=== PATIENT | female | born 1975 | race Caucasian/White ===

== ENCOUNTER 2016-05-29 15:36 | Emergency (ER) ==
[2016-05-29 15:39] VITALS: BP 123/82; TEMP 98.2; BMI 25.4
--- NOTE | 2016-05-29 16:11 | ED.PDOC ---
General ED Provider: Dr. TITO NOBLE Chief Complaint: Headache Stated Complaint: headache Time Seen by Physician: 15:45 (flu like symptoms) Mode of Arrival: Walk-In Information Source: Patient Exam Limitations: No limitations Primary Care Provider: XAVI CHAPMAN Nursing and Triage Documentation Reviewed and Agree: Yes EENT Complaint Exam - Throat Complaint/Exam Onset/Duration: 1 day with headache, chills Symptoms Are: Still present Timimg: Intermittent Initial Severity: Mild Current Severity: Mild Alleviating: Reports: None Associated Signs and Symptoms: Reports: Cough, Nasal congestion. Denies: Fever , Dysphagia, Drooling, Foreign body sensation, Chills, Wheezing, Hoarseness, Sinus discomfort, Difficulty breathing, Lethargy, Irritability, Decreased activity, Vomiting, Diarrhea, Decreased hearing, Ear drainage Related History: Reports: Similar Episode Uvula Midline: Yes Yamileth-tonsillar Fluctuence: No Scarlatinaform Rash Present: No Stridor Present: No Sinus Tenderness Present: No Tonsillar Hypertrophy Present: No Tonsillar Exudate Present: No Yamileth-tonsillar Swelling Present: No Adenopathy Present: No Splenomegaly Present: No Differential Diagnoses: Pharyngitis Review of Systems - Review Of Systems Constitutional: Reports: Malaise, Weakness Eyes: Reports: No symptoms Ears, Nose, Mouth, Throat: Reports: Throat pain Respiratory: Reports: No symptoms Cardiac: Reports: No symptoms GI: Reports: No symptoms : Reports: No symptoms Musculoskeletal: Reports: No symptoms Skin: Reports: No symptoms Neurological: Reports: No symptoms Endocrine: Reports: No symptoms Hematologic/Lymphatic: Reports: No symptoms All Other Systems: Reviewed and Negative Past Medical History - Past Medical History Previously Healthy: Yes Endocrine: Reports: None, DM 2 Cardiovascular: Reports: None Respiratory: Reports: None Hematological: Reports: None Gastrointestinal: Reports: None Genitourinary: Reports: None Neuro/Psych: Reports: None Musculoskeletal: Reports: None Cancer: Reports: None Last Menstrual Period: NONE - Surgical History General Surgical History: Reports: Tubal ligation, Appendectomy, Other (T&A) - Family History Family History: Reports: Unknown - Social History Smoking Status: Current every day smoker, Heavy tobacco smoker Hx Substance Use: No Alcohol Screening: Occasionally Physical Exam - Physical Exam Appearance: Ill-appearing Ill-appearing: Mild Pain Distress: Moderate Eyes: ETIENNE, EOMI, Conjunctiva clear ENT: Ears normal, Nose normal, Oropharynx normal Respiratory: Airway patent, Breath sounds clear, Breath sounds equal, Respirations nonlabored Cardiovascular: RRR, Pulses normal, No rub, No murmur GI/: Soft, Nontender, No masses, Bowel sounds normal, No Organomegaly Musculoskeletal: Normal strength, ROM intact, No edema, No calf tenderness Skin: Warm, Dry, Normal color Neurological: Sensation intact, Motor intact, Reflexes intact, Cranial nerves intact, Alert, Oriented Psychiatric: Affect appropriate, Mood appropriate Critical Care Note - Critical Care Note Total Time (mins): 0 Course - Course Vital Signs: Temp Pulse Resp BP Pulse Ox 05/29/16 15:36 98.2 F 81 20 123/82 94 L Departure - Departure Time of Disposition: 16:11 Disposition: HOME SELF-CARE Discharge Problem: Headache, Viral syndrome Instructions: Viral Syndrome (ED) Condition: Good Pt referred to PMD for follow-up: No Additional Instructions: Please call your Family Physician as soon as possible to schedule a follow-up appointment. Prescriptions: Hydrocodone/Acetaminophen [Loris 5-325 Tablet] 1 each PO Q6HR PRN #6 tablet PRN Reason: PAIN Azithromycin [Zithromax] 250 mg PO DIRECTED #6 tablet Prednisone 40 mg PO DAILYWM #7 tablet Allergies/Adverse Reactions: Allergies ibuprofen Adverse Reaction (Verified 05/29/16 15:40) NAUSEA IRRITATES STOMACH Home Medications: Ambulatory Orders Hydrocodone/Acetaminophen [Loris 7.5-325 Tablet] 7.5 - 325 mg PO TID 12/07/15 Azithromycin [Zithromax] 250 mg PO DIRECTED #6 tablet 05/29/16 Hydrocodone/Acetaminophen [Loris 5-325 Tablet] 1 each PO Q6HR PRN #6 tablet Prednisone 40 mg PO DAILYWM #7 tablet 05/29/16
== END 2016-05-29 16:19 | disposition home or self-care (01) ==
LOC: ED 15:36
DX: B34.9 Viral infection, unspecified (principal); R51 Headache; F17.210 Nicotine dependence, cigarettes, uncomplicated; Z79.899 Other long term (current) drug therapy
CPT/HCPCS: 99282

== ENCOUNTER 2016-06-30 15:01 | Emergency (ER) ==
[2016-06-30 15:04] VITALS: BP 102/69; TEMP 98.3; BMI 25.7
[2016-06-30 15:25] LABS: BASOPHILS % (AUTO) 0.3 % (0.0-3.0); EOSINOPHILS # (AUTO) 0.1 K/ul (0.0-0.7); EOSINOPHILS % (AUTO) 0.9 % (0.0-7.0); HEMATOCRIT 37.5 % (37.0-47.0); IMMATURE GRANULOCYTE % (AUTO) 0.3 % (0.0-5.0); LYMPHOCYTES # (AUTO) 3.1 K/uL (0.60-3.4); LYMPHOCYTES % (AUTO) 23.6 (10.0-50.0); MEAN CORPUSCULAR HEMOGLOBIN 31.7 pg (27.0-31.0); MEAN CORPUSCULAR HGB CONC 34.7 (31.8-35.4); MEAN CORPUSCULAR VOLUME 91.5 fl (81.0-99.0); MONOCYTES # (AUTO) 0.8 K/uL (0.4-2.0); MONOCYTES % (AUTO) 6.2 (0-10); NEUTROPHILS # (AUTO) 8.9 K/ul (2.0-6.9); NEUTROPHILS % (AUTO) 68.7; PLATELET COUNT 334 10^3/uL (140-440); WHITE BLOOD COUNT 13.01 K/ul (4.6-10.2)
[2016-06-30 16:01] LABS: URINE PREGNANCY INTERNAL QC INTERNAL QC VALID
[2016-06-30 16:11] LABS: FLU INTERNAL QC INTERNAL QC VALID; RAPID FLU A NEGATIVE (NEGATIVE); RAPID FLU B NEGATIVE (NEGATIVE)
[2016-06-30 16:19] LABS: POTASSIUM 3.1 mmol/L (3.5-5.10)
[2016-06-30 16:20] LABS: ALBUMIN 3.9 g/dL (3.4-5.0); ALBUMIN/GLOBULIN RATIO 1.44; ANION GAP 10.1; BILIRUBIN,TOTAL 0.7 mg/dL (0.00-1.20); CALCIUM 8.9 mg/dL (8.2-10.2); CREATININE 0.6 mg/dL (0.60-1.30); TOTAL PROTEIN 6.6 g/dL (6.4-8.2)
--- NOTE | 2016-06-30 16:31 | DI ---
EXAM: Chest two views HISTORY: Cough FINDINGS: PA and lateral views of the chest were obtained and demonstrates the lungs to be well exp anded and appear clear. There is no evidence of focal infiltrate, consolidate nor concerning pulmon tom nodule or mass. Heart, pleura, esequiel, mediastinum, and pulmonary vascular lung markings appeared normal. The osseous structures are without significant abnormality. IMPRESSION: No active cardiac or pulmonary disease. No significant changes compared to the prior s tudy dated 07/22/2014.
[2016-06-30] MEDS ORDERED: LIDOCAINE 1 % AMP 5 ML (SUTURES) IM STA (16:44)
[2016-06-30] MEDS ORDERED: ROCEPHIN IM STA (16:44)
[2016-06-30] MEDS ORDERED: ZITHROMAX PO STA (16:45)
--- NOTE | 2016-06-30 16:49 | ED.PDOC ---
General ED Provider: Dr. TITO NOBLE Chief Complaint: Respiratory Complaint Stated Complaint: cough, wheez, weak Time Seen by Physician: 15:00 Mode of Arrival: Walk-In Information Source: Patient Exam Limitations: No limitations [facility] and T[facility] Documentation Reviewed and Agree: Yes Respiratory Complaint Exam - Respiratory Complaint/Exam Onset/Duration: 2 days Symptoms Are: Still present Timing: Intermittent Initial Severity: Moderate Current Severity: Moderate Location: Throat, Chest Character: Reports: Non-productive cough Aggravating: Reports: None Associated Signs and Symptoms: Reports: Wheezing (smokes2 pack/day) Related History: Reports: Similar episode History of Healthcare-Acquired Pneumonia: No Related Surgical History: Reports: None Pulmonary Embolism Risk Factors: None Cardiac Risk Factors: Reports: None Pseudomonas Risk Factors: Reports: None Tuberculosis Risk Factors: Reports: Smoking Status Asthmaticus Risk Factors: Reports: None Home Oxygen Use: No Recent Stress Test: No Recent Echo/LV Function: No Current Antibiotic Use: No Current Asthma Medication Use: No Respiratory Distress: None Inadequate Respiratory Effort: No Dysphagia Present: No Stridor Present: No JVD Present: No Retractions: Not Present Diminished Breath Sounds: No Sinus Tenderness: None Grunting Respirations: No Kussmaul Respirations: No Differential Diagnoses: Pneumonia, Bronchitis Review of Systems - Review Of Systems Constitutional: Reports: Malaise, Weakness Eyes: Reports: No symptoms Ears, Nose, Mouth, Throat: Reports: No symptoms Respiratory: Reports: Cough Cardiac: Reports: No symptoms GI: Reports: No symptoms : Reports: No symptoms Musculoskeletal: Reports: No symptoms Skin: Reports: No symptoms Neurological: Reports: No symptoms Endocrine: Reports: No symptoms Hematologic/Lymphatic: Reports: No symptoms All Other Systems: Reviewed and Negative Past Medical History - Past Medical History Previously Healthy: Yes Endocrine: Reports: None, DM 2 Cardiovascular: Reports: None Respiratory: Reports: None Hematological: Reports: None Gastrointestinal: Reports: None Genitourinary: Reports: None Neuro/Psych: Reports: None Musculoskeletal: Reports: None Cancer: Reports: None Last Menstrual Period: n/a - Surgical History General Surgical History: Reports: Tubal ligation, Appendectomy, Other (T&A) - Family History Family History: Reports: Unknown - Social History Smoking Status: Current every day smoker, Heavy tobacco smoker Hx Substance Use: No Alcohol Screening: Occasionally Physical Exam - Physical Exam Appearance: Well-appearing, No pain distress, Well-nourished Eyes: ETIENNE, EOMI, Conjunctiva clear ENT: Ears normal, Nose normal, Oropharynx normal Respiratory: Airway patent, Breath sounds clear, Breath sounds equal, Respirations nonlabored Cardiovascular: RRR, Pulses normal, No rub, No murmur GI/: Soft, Nontender, No masses, Bowel sounds normal, No Organomegaly Musculoskeletal: Normal strength, ROM intact, No edema, No calf tenderness Skin: Warm, Dry, Normal color Neurological: Sensation intact, Motor intact, Reflexes intact, Cranial nerves intact, Alert, Oriented Psychiatric: Affect appropriate, Mood appropriate Interpretation - Radiology Interpretation Radiology Interpretation By: Radiologist Radiology Results: No acute changes Critical Care Note - Critical Care Note Total Time (mins): 0 Course - Course Hematology/Chemistry: 06/30/16 15:20 06/30/16 15:20 Orders, Labs, Meds: Lab Review 06/30/16 06/30/16 15:20 15:40 WBC 13.01 H RBC 4.10 L Hgb 13.0 Hct 37.5 MCV 91.5 MCH 31.7 H MCHC 34.7 RDW Coeff of Valeriy 13.9 Plt Count 334 Immature Gran % (Auto) 0.3 Neut % (Auto) 68.7 Lymph % (Auto) 23.6 Beadle % (Auto) 6.2 Eos % (Auto) 0.9 Baso % (Auto) 0.3 Immature Gran # (Auto) 0.0 Neut # 8.9 H Lymph # 3.1 Beadle # 0.8 Eos # 0.1 Baso # 0.0 Sodium 140 Potassium 3.1 L Chloride 107 Carbon Dioxide 26 Anion Gap 10.1 BUN 9 Creatinine 0.60 Estimated GFR (MDRD) 111.00 BUN/Creatinine Ratio 15.00 Glucose 92 Calcium 8.9 Total Bilirubin 0.70 AST 9 L ALT 7 L Alkaline Phosphatase 79 Total Protein 6.6 Albumin 3.9 Globulin 2.7 Albumin/Globulin Ratio 1.44 Urine Test Negative Influenza A (Rapid) Negative Influenza B (Rapid) Negative Orders Category Date Time Status CBC W/ AUTO DIFF Stat LAB 06/30/16 15:20 Completed COMPREHENSIVE METABOLIC PANEL Stat LAB 06/30/16 15:20 Completed MOLECULAR GROUP A STREP Stat LAB 06/30/16 15:40 Results RAPID FLU A/B Stat LAB 06/30/16 15:40 Completed STREP SCREEN Stat LAB 06/30/16 15:40 Results URINE Stat LAB 06/30/16 15:40 Completed Azithromycin [Zithromax] MEDS 06/30/16 16:45 Stat 500 mg PO ONCE STA Ceftriaxone Sodium [Rocephin] MEDS 06/30/16 16:44 Stat 1 gm IM ONCE STA Lidocaine HCl/Pf [Lidocaine 1 % Amp 5 ml (Sutures)] MEDS 06/30/16 16:44 Stat 2.1 ml IM ONCE STA CHEST, 2 VIEWS PA & LAT Stat RADS 06/30/16 15:15 Completed Medications Discontinued Medications Generic Name Dose Route Start Last Admin Trade Name Gomez PRN Reason Stop Dose Admin Azithromycin 500 mg 06/30/16 16:45 Zithromax PO 06/30/16 16:46 ONCE STA Ceftriaxone Sodium 1 gm 06/30/16 16:44 Rocephin IM 06/30/16 16:45 ONCE STA Lidocaine HCl 2.1 ml 06/30/16 16:44 Lidocaine 1 % Amp 5 Ml (Sutures) IM 06/30/16 16:45 ONCE STA Vital Signs: Temp Pulse Resp BP Pulse Ox 06/30/16 15:02 98.3 F 81 20 102/69 95 Departure - Departure Time of Disposition: 16:48 Disposition: HOME SELF-CARE Discharge Problem: Bronchitis Instructions: Acute Bronchitis (ED), Bronchospasm (ED), Wheezing (ED), Effects of Smoking, Alcohol, and Medicines on (ED), How to Stop Smoking ( ED), Smoke Inhalation (ED), Secondhand Smoke Exposure in Children (ED), How to Quit Using Smokeless Tobacco (ED) Condition: Good Pt referred to PMD for follow-up: No Additional Instructions: Please call your Family Physician as soon as possible to schedule a follow-up appointment. Allergies/Adverse Reactions: Allergies ibuprofen Adverse Reaction (Verified 06/30/16 15:04) NAUSEA IRRITATES STOMACH Home Medications: Ambulatory Orders Hydrocodone/Acetaminophen [Currie 7.5-325 Tablet] 7.5 - 325 mg PO TID 12/07/15
[2016-06-30] MEDS ORDERED: DECADRON 4 MG/ML SDV IM STA (16:51)
== END 2016-06-30 17:49 | disposition home or self-care (01) ==
LOC: ED 15:01
DX: J20.9 Acute bronchitis, unspecified (principal); F17.210 Nicotine dependence, cigarettes, uncomplicated
CPT/HCPCS: 36415; 80053; 81025; 85025; 87651; 87804; 87880; 96372; 99283

== ENCOUNTER 2016-11-06 14:08 | Emergency (ER) ==
[2016-11-06 14:11] VITALS: BP 118/75; TEMP 97.8; BMI 24.9
--- NOTE | 2016-11-06 14:41 | ED.PDOC ---
General ED Provider: Dr. IRENE ORTEZ JR Chief Complaint: Headache Stated Complaint: patient c/o migraine headache and states causing ears to hurt. [ End ]97.8 76 14 97% 118/75 01/09. T & A, APPENDECTOMY, TUBES IN EARS, HYSTERECTOMY 2015, TUBAL LIGATION. GESTATIONAL DIABETES. derp anx migr. nausea vomiting photoph Time Seen by Physician: 14:41 Mode of Arrival: Walk-In Information Source: Patient Exam Limitations: No limitations [facility] T[facility] Documentation Reviewed and Agree: No Review of Systems - Review Of Systems Constitutional: Reports: Malaise Eyes: Reports: Photophobia Ears, Nose, Mouth, Throat: Reports: Ear pain, Throat pain Respiratory: Reports: No symptoms Cardiac: Reports: No symptoms GI: Reports: No symptoms Musculoskeletal: Reports: No symptoms Skin: Reports: No symptoms Neurological: Reports: Headache (for one week nothing helps but to sleep no benefit fromfioricet) Endocrine: Reports: No symptoms Hematologic/Lymphatic: Reports: No symptoms All Other Systems: Other Past Medical History - Past Medical History Previously Healthy: Yes Endocrine: Reports: None, DM 2 Cardiovascular: Reports: None Respiratory: Reports: None Hematological: Reports: None Gastrointestinal: Reports: None Genitourinary: Reports: None Neuro/Psych: Reports: None Musculoskeletal: Reports: None Cancer: Reports: None Last Menstrual Period: n/a - Surgical History General Surgical History: Reports: Tubal ligation, Appendectomy, Other (T&A) - Family History Family History: Reports: Unknown - Social History Smoking Status: Current every day smoker, Heavy tobacco smoker Hx Substance Use: No Alcohol Screening: Occasionally Physical Exam - Physical Exam Appearance: Well-appearing Ill-appearing: Moderate Pain Distress: Moderate Eyes: ETIENNE, EOMI, Conjunctiva clear ENT: Nose normal, Oropharynx normal, Erythema Neck: Supple Respiratory: Airway patent, Breath sounds clear, Breath sounds equal, Respirations nonlabored Cardiovascular: RRR, Pulses normal, No rub, No murmur GI/: Soft, Nontender, No masses, Bowel sounds normal, No Organomegaly Musculoskeletal: Normal strength, ROM intact, No edema, No calf tenderness Skin: Warm, Dry, Normal color Neurological: Sensation intact, Motor intact, Reflexes intact, Cranial nerves intact, Alert, Oriented Psychiatric: Affect appropriate, Mood appropriate Critical Care Note - Critical Care Note Total Time (mins): 0 Course - Course Orders, Labs, Meds: Orders Category Date Time Status STREP SCREEN Stat LAB 11/06/16 15:05 Received Morphine Sulfate [Morphine 4 mg/ml Syringe] MEDS 11/06/16 15:04 Discontinued 4 mg IM ONCE STA Neomycin/Polymyxin B/Hc Otic [Cortisporin Otic Susp] MEDS 11/06/16 15:02 Discontinued 4 drop OT ONCE STA Promethazine HCl [Phenergan 25 mg/ml Vial] MEDS 11/06/16 15:04 Discontinued 25 mg IM ONCE STA Medications Discontinued Medications Generic Name Dose Route Start Last Admin Trade Name Freq PRN Reason Stop Dose Admin Morphine Sulfate 4 mg 11/06/16 15:04 11/06/16 15:09 Morphine 4 Mg/Ml Syringe IM 11/06/16 15:05 4 mg ONCE STA Administration Neomycin/Polymyxin/Hydrocortisone 4 drop 11/06/16 15:02 11/06/16 15:12 Cortisporin Otic Susp OT 11/06/16 15:03 Not Given ONCE STA Promethazine HCl 25 mg 11/06/16 15:04 11/06/16 15:09 Phenergan 25 Mg/Ml Vial IM 11/06/16 15:05 25 mg ONCE STA Administration Vital Signs: Temp Pulse Resp BP Pulse Ox 11/06/16 14:08 97.8 F 76 14 118/75 97 Departure - Departure Time of Disposition: 15:45 Disposition: HOME SELF-CARE Discharge Problem: Headache, Otitis externa Pharyngitis Qualifiers: Pharyngitis/tonsillitis etiology: unspecified etiology Qualifier Code: (J02.9) Acute pharyngitis, unspecified Instructions: Pharyngitis (ED), Otitis Externa (ED), Acute Headache (ED) Condition: Good Pt referred to PMD for follow-up: Yes Additional Instructions: consider neurology referral for headaches pain medications are known to trigger headaches- avoid excessive or every day doses of medications containing aspirin Tylenol or NSAIDS Keflex antibiotic for sore throat- for one week- if strep is positive use for 10 days cortisporin for ear inflammation- for 2-5 days only Prescriptions: Hydrocodone Bit/Acetaminophen [Orrum 5-325] 1 - 2 tab PO Q6HR PRN #12 tablet PRN Reason: pain Naproxen [Naprosyn] 500 mg PO Q12HR PRN #30 tablet PRN Reason: PAIN Cephalexin [Keflex] 500 mg PO QID #40 capsule Neomycin/Polymyxin B/Hc Otic [Cortisporin Otic Susp] 4 drop OT QID #1 bottle Allergies/Adverse Reactions: Allergies ibuprofen Adverse Reaction (Verified 11/06/16 14:12) NAUSEA IRRITATES STOMACH Home Medications: Ambulatory Orders Hydrocodone/Acetaminophen [Orrum 7.5-325 Tablet] 7.5 - 325 mg PO TID 12/07/15 Cephalexin [Keflex] 500 mg PO QID #40 capsule 11/06/16 Naproxen [Naprosyn] 500 mg PO Q12HR PRN #30 tablet 11/06/16 Neomycin/Polymyxin B/Hc Otic [Cortisporin Otic Susp] 4 drop OT QID #1 bottle 10/16
[2016-11-06] MEDS: MORPHINE 4 MG/ML SYRINGE IM STA (15:09)
[2016-11-06] MEDS: PHENERGAN 25 MG/ML VIAL IM STA (15:09)
[2016-11-06] MEDS: CORTISPORIN OTIC SUSP OT STA (15:12)
== END 2016-11-06 15:48 | disposition home or self-care (01) ==
LOC: ED 14:08
DX: R51 Headache (principal); H60.90 Unspecified otitis externa, unspecified ear; J02.9 Acute pharyngitis, unspecified; F17.210 Nicotine dependence, cigarettes, uncomplicated
CPT/HCPCS: 87651; 87880; 96372; 99283